=== PATIENT | female | born 1990 | race Caucasian/White ===

== ENCOUNTER 2019-03-03 19:09 | Emergency (ER) | payer OTHER ==
[~2019-03-03] VITALS: Ht 162.6 cm; Wt 59.9 kg
[2019-03-03 19:15] VITALS: BP_SYST 114
[2019-03-03] MEDS ORDERED: KETOROLAC TROMETHAMINE 60 MG/2 ML VIAL IM ONE (20:00)
[2019-03-03 21:07] VITALS: BP_SYST 116
== END 2019-03-03 21:07 | disposition home or self-care (01) ==
LOC: SED 19:09
DX: S63.502A Unspecified sprain of left wrist, initial encounter (principal); X58.XXXA Exposure to other specified factors, initial encounter; Y93.89 Activity, other specified; Y92.89 Other specified places as the place of occurrence of the external cause; Y99.8 Other external cause status
CPT/HCPCS: 29125; 73130; 96372; 99283; J1885